=== PATIENT | female | born 1955 | race Caucasian/White ===

== ENCOUNTER 2022-02-13 09:50 | Emergency (ER) | payer BC ==
[~2022-02-13] VITALS: Ht 157.5 cm; Wt 68.0 kg
[2022-02-13] MEDS ORDERED: PROVENTIL HFA6.7 GM INH (11:24)
[2022-02-13] MEDS ORDERED: AMOX TR-K CLV1 EAC2 PO (11:25)
[2022-02-13] MEDS ORDERED: MEDROL4 MG PO (11:27)
[2022-02-13] MEDS ORDERED: ALBUTEROL/IPRATROPIUM 3 ML NEB NEB ONE (11:30)
[2022-02-13] MEDS ORDERED: PREDNISONE 20 MG TAB PO ONE (11:30)
[2022-02-13] MEDS ORDERED: PREDNISONE 20 MG TAB ONE (11:45)
[2022-02-13] MEDS ORDERED: ALBUTEROL/IPRATROPIUM 3 ML NEB ONE (11:45)
== END 2022-02-13 11:54 | disposition home or self-care (01) ==
LOC: FSED 10:07
DX: R05.9 Cough, unspecified (principal); J20.9 Acute bronchitis, unspecified; E78.5 Hyperlipidemia, unspecified; E03.9 Hypothyroidism, unspecified
CPT/HCPCS: 71046; 99283; J7512